=== PATIENT | male | born 1960 | race Caucasian/White ===

== ENCOUNTER 2019-05-02 04:19 | Observation (INO) | payer OTHER ==
[~2019-05-02] VITALS: Ht 172.7 cm; Wt 65.0 kg
[2019-05-02] VITALS (7 sets, daily range): BP systolic 94–135; BP diastolic 63–82
[2019-05-02] MEDS ORDERED: SODIUM CHLORIDE FLUSH 10ML SYR IVF ONE (05:00)
[2019-05-02] MEDS ORDERED: ONDANSETRON 2MG/ML, 2ML IVPush ONE (05:00)
[2019-05-02] MEDS ORDERED: MECLIZINE CHEWABLE 25 MG TAB PO ONE (05:00)
[2019-05-02] MEDS ORDERED: ONDANSETRON 2MG/ML, 2ML ONE ×2 (05:05→05:39)
[2019-05-02] MEDS ORDERED: MECLIZINE CHEWABLE 25 MG TAB ONE ×2 (05:05→05:39)
--- NOTE | 2019-05-02 05:17 | NUR ---
PATIENT REPORTS DIZZINESS AND NAUSEA UPON WAKING. X3 EPISODES OF VOMITING THIS MORNING. DENIES WEAKNESS, N/T, HEADACHE, CP, SOB. DENIES HX OF SAME. EKG COMPLETED UPON TRIAGE. ALL MONITORS APPLIED. PATIENT TO CT, NOW BACK IN ROOM.
--- NOTE | 2019-05-02 05:23 | NUR ---
REQUESTED URINE SAMPLE, PT UNABLE TO VOID AT THIS TIME.
[2019-05-02 05:32] LABS: BASOPHILS # (AUTO) 0.05 x10^3/uL (0-0.1); BASOPHILS % (AUTO) 1 % (0-1); EOSINOPHILS # (AUTO) 0.32 x10^3/uL (0-0.4); EOSINOPHILS % (AUTO) 4 % (1-7); LYMPHOCYTES # (AUTO) 1.03 x10^3/uL (1-3.4); LYMPHOCYTES % (AUTO) 13 % (22-44); MD NO; MEAN CORPUSCULAR HEMOGLOBIN 30.5 pg (27.5-34.5); MEAN CORPUSCULAR HGB CONC 33.1 g/dL (33.2-36.2); MEAN CORPUSCULAR VOLUME 92.2 fL (81-97); MONOCYTES # (AUTO) 0.49 x10^3/uL (0.2-0.8); MONOCYTES % (AUTO) 6 % (2-9); NEUTROPHILS # (AUTO) 5.93 x10^3/uL (1.8-6.8); NEUTROPHILS % (AUTO) 76 % (42-75); PLATELET COUNT 284 x10^3/uL (130-400); RED BLOOD COUNT 4.77 x10^6/uL (4.38-5.82); RED CELL DISTRIBUTION WIDTH 14.7 % (9.4-14.8)
[2019-05-02 05:42] LABS: ALBUMIN 3.4 g/dL (3.4-5.0); ANION GAP 5 mmol/L (5-15); CALCIUM 8.8 mg/dL (8.5-10.1); CHLORIDE 113 mmol/L (98-107)
[2019-05-02 05:47] LABS: CREATININE 0.97 mg/dL (0.7-1.3); TROPONIN I < 0.015 ng/mL (0.000-0.045)
--- NOTE | 2019-05-02 06:14 | NUR ---
PT. REPORTS HE IS STILL DIZZY WHEN SITTING UP "BUT IT'S MUCH BETTER" AFTER MEDS. DENIES NAUSEA AT THIS TIME. PT. HAS NOT BEEN ABLE TO PROVIDE URINE SAMPLE YET STATES "I DIDN'T HAVE MY COFFEE." DAUGHTER REMAINS AT FOR SUPPORT. AWAITING CXR AND CT READS.
[2019-05-02] MEDS ORDERED: TERA5CAP3 PO (06:57)
[2019-05-02] MEDS ORDERED: ATOR-2 PO (06:58)
--- NOTE | 2019-05-02 06:59 | NUR ---
DR. MARCUS WAS IN TO DISCUSS POC WITH PT. AND DAUGHTER AT BS. ATTEMPTED TO AMBULATE PT. PT. REPORTED DIZZINESS WAS BETTER. PT. VERY UNSTABLE ON FEET R/T DIZZINESS. NO NEW NEURO COMPLAINTS OR CHANGES. PT. TO BE ADMIT FOR FURTHER WORKUP. REPORT TO CLINT YANES.
--- NOTE | 2019-05-02 06:59 | NUR ---
BEDSIDE REPORT FROM CLINT JASON. ASSUMED CARE OF PATIENT AT THIS TIME. PATIENT SITTING COMFORTABLY IN GURNEY, RESP EVEN/UNLABORED. VS UPDATED IN CHART, ADMIT ORDER IN, AWAITING BED ASSIGNMENT.
[2019-05-02] MEDS ORDERED: SODIUM CHLORIDE FLUSH 10ML SYR IVF PRN (07:00)
--- NOTE | 2019-05-02 07:52 | NUR ---
PATIENT RESTING IN [facility]. RESP EVEN/UNLABORED, NEW ORDERS, AWAITING MRI. PATIENT UPDATED ON POC.
[2019-05-02] MEDS ORDERED: ONDANSETRON 2MG/ML, 2ML IVPush PRN (08:00)
[2019-05-02] MEDS ORDERED: ACETAMINOPHEN 650 MG/20.3 ML UDC PO PRN (08:00)
[2019-05-02] MEDS ORDERED: ONDANSETRON 4 MG TABLET PO PRN (08:00)
--- NOTE | 2019-05-02 08:03 | NUR ---
REPORT TO CLINT GREEN.
--- NOTE | 2019-05-02 08:17 | NUR ---
SPOKE TO MRI, PATIENT TO HAVE CT AFTER AND THEY WILL BRING PATIENT TO ROOM 490-1.
[2019-05-02] MEDS ORDERED: OMNIPAQUE 350 MG/ML, 100ML BOTTLE ONE (09:05)
[2019-05-02] MEDS: TERAZOSIN 5MG CAPSULE PO SCH (09:32)
[2019-05-02] MEDS: ASPIRIN 81 MG TABLET CHEW PO/NG SCH (09:32)
[2019-05-02 13:57] LABS: CULTURE INDICATED? NO; MICROSCOPIC NOT IND
[2019-05-02 16:53] LABS: AMPHETAMINE SCREEN, URINE Negative (Negative); BARBITURATE SCREEN, URINE Negative (Negative); BENZODIAZEPINE SCREEN, URINE Negative (Negative); CANNABINOID SCREEN, URINE Negative (Negative); COCAINE SCREEN, URINE Negative (Negative); METHADONE SCREEN, URINE Negative (Negative); OPIATE SCREEN, URINE Negative (Negative)
[2019-05-02] MEDS ORDERED: ATORVASTATIN 40 MG TABLET PO SCH (21:00)
[2019-05-03 00:20] VITALS: BP 117/70
[2019-05-03 03:16] VITALS: BP 125/79
[2019-05-03 04:04] VITALS: BP 119/73
[2019-05-03 05:34] LABS: ANION GAP 5 mmol/L (5-15); CALCIUM 8.5 mg/dL (8.5-10.1); CHLORIDE 114 mmol/L (98-107); CHOLESTEROL, TOTAL 118 mg/dL (140-239); CREATININE 0.89 mg/dL (0.7-1.3)
[2019-05-03 05:37] LABS: CHOL/HDL RATIO 3.8; HDL CHOL % 26 % (26-37); HDL CHOLESTEROL (DIRECT) 31 mg/dL (40-60); LDL CHOLESTEROL,CALCULATED 57 mg/dL (54-169); LDL/HDL RATIO 1.8 (0.5-3.0); TRIGLYCERIDES 152 mg/dL (50-200); VLDL CHOLESTEROL 30 mg/dL (0-25)
[2019-05-03 06:09] LABS: HEMOGLOBIN A1C 5.7 % (4.2-6.3)
[2019-05-03 08:00] VITALS: BP 110/72
[2019-05-03 08:22] VITALS: BP 131/83
[2019-05-03] MEDS: TERAZOSIN 5MG CAPSULE PO SCH (08:25)
[2019-05-03] MEDS: ASPIRIN 81 MG TABLET CHEW PO/NG SCH (08:25)
[2019-05-03 12:00] VITALS: BP 142/83
== END 2019-05-03 16:20 | disposition home or self-care (01) ==
LOC: ED 06:59 → EDIP 07:06 → INTOOBSV 07:06 → 3N 07:32 → EDIP 08:19 → 4EST 08:38
PROVIDERS: ADMIT Internal Medicine; ATTEND Internal Medicine
DX: R42 Dizziness and giddiness (principal); N40.0 Benign prostatic hyperplasia without lower urinary tract symptoms; E78.5 Hyperlipidemia, unspecified; Z88.5 Allergy status to narcotic agent
CPT/HCPCS: 36415; 70450; 70496; 70498; 70551; 71045; 80048; 80061; 80307; 81003; 82040; 83036; 83880; 84484; 85025; 93005; 96374; 97165; 99284; G0378; J2405; Q9967; 99285